=== PATIENT | female | born 1975 | race American Indian/Alaskan Native ===

== ENCOUNTER 2016-04-08 18:13 | Emergency (ER) | payer OTHER ==
[2016-04-08] MEDS ORDERED: TORADOL IM ONE (23:18)
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
[2016-04-08 23:48] VITALS: BP 132/74
== END 2016-04-09 | disposition home or self-care (01) ==
LOC: ED 18:13
DX: S16.1XXA Strain of muscle, fascia and tendon at neck level, initial encounter (principal); S29.012A Strain of muscle and tendon of back wall of thorax, initial encounter; E28.2 Polycystic ovarian syndrome; V89.2XXA Person injured in unspecified motor-vehicle accident, traffic, initial encounter; Y93.89 Activity, other specified; Y99.8 Other external cause status; Y92.89 Other specified places as the place of occurrence of the external cause
CPT/HCPCS: 96372; 99282; J1885

== ENCOUNTER 2017-05-03 23:30 | Emergency (ER) | payer OTHER ==
[2017-05-04 00:20] VITALS: BP 156/95
== END 2017-05-04 00:45 ==
LOC: ED 23:30
DX: M25.512 Pain in left shoulder (principal); Z53.21 Procedure and treatment not carried out due to patient leaving prior to being seen by health care provider
CPT/HCPCS: 93005; 93010